=== PATIENT | female | born 1965 | race Caucasian/White ===

== ENCOUNTER 2017-07-24 11:46 | Emergency (ER) | payer OTHER ==
[~2017-07-24] VITALS: Ht 162.6 cm; Wt 74.8 kg
--- NOTE | 2017-07-24 11:50 | NUR ---
[id number] S/P TRIPPED AND FALL C/O BACK PAIN. NO KO. SEEN BY MD FOR EVAL. VSS. SAFETY AND COMFORT MEASURES PROVIDED. WILL MONITOR.
--- NOTE | 2017-07-24 12:18 | NUR ---
PT TAKEN TO CT SCAN/XRAY.
--- NOTE | 2017-07-24 12:44 | NUR ---
Patient discharged to home in stable condition. Written and verbal after care instructions given. Patient verbalizes understanding of instruction.
[2017-07-24 12:45] VITALS: BP 141/69
== END 2017-07-24 12:48 | disposition home or self-care (01) ==
LOC: ER 11:48
DX: S09.8XXA Other specified injuries of head, initial encounter (principal); M54.9 Dorsalgia, unspecified; W01.0XXA Fall on same level from slipping, tripping and stumbling without subsequent striking against object, initial encounter; Y93.89 Activity, other specified; Y92.89 Other specified places as the place of occurrence of the external cause; Y99.8 Other external cause status
CPT/HCPCS: 70450-TC; 72100-TC; A4606; Z7610